=== PATIENT | female | born 1995 | race Caucasian/White ===

== ENCOUNTER 2017-07-25 10:15 | Emergency (ER) | payer MEDICAID ==
[~2017-07-25] VITALS: Ht 152.4 cm; Wt 45.4 kg
[2017-07-25 11:10] VITALS: BP 105/72
[2017-07-25] MEDS ORDERED: LIDOCAINE 1% HCL (LOCAL ANESTH.) INJ 20ML MDV ID ONE (11:15)
== END 2017-07-25 11:46 | disposition home or self-care (01) ==
LOC: ER 10:15
DX: L02.413 Cutaneous abscess of right upper limb (principal); F17.210 Nicotine dependence, cigarettes, uncomplicated; F12.10 Cannabis abuse, uncomplicated
CPT/HCPCS: 10060; 99283; J2001

== ENCOUNTER 2017-07-27 12:59 | Emergency (ER) | payer MEDICAID ==
[~2017-07-27] VITALS: Ht 152.4 cm; Wt 45.4 kg
[2017-07-27 13:27] VITALS: BP 114/77
== END 2017-07-27 15:00 | disposition home or self-care (01) ==
LOC: ER 12:59
DX: L02.413 Cutaneous abscess of right upper limb (principal); F17.210 Nicotine dependence, cigarettes, uncomplicated